=== PATIENT | female | born 1980 | race Caucasian/White ===

== ENCOUNTER → 2017-05-05 | Outpatient (CLI) | payer OTHER ==
[2016-11-06 15:08] VITALS: BP 92/55
[~2017-05-05] MED LIST: ASPI-482 PO; B CO1CAP6 PO; BUSP15TA PO; CETI10CA PO; CLON0.5T PO; CLON0.5T3 PO; CLON1TAB3; DICL1TAB5 PO; DIPH25CA58 PO; DOCU-109 PO; DOCU100C2 PO; DOXY100T PO; DULO60CA6 PO; ENOX40DI SQ; ERYT250T14; ESCITALOPRAM OX20 MG; Enoxaparin Sodium SQ; FENT1PAT90; FENT1PAT90 TD; FENT1PAT91; FLUO20CA16 PO; GABA-586 PO; GABA600T2; HYDR-2766; HYDR-3074 PO; LIDO700A4 TP; LISD50CA3 PO; LORA10CA PO; LUBI24CA7 PO; METH-38 PO; OMEP40CA2 PO; OMEP40CA5; ONDA4TAB10 PO; ONDA8TAB12 PO; ONDA8TAB15 PO; OXYC-314 PO; OXYC10TA PO; OXYC10TA45 PO; OXYC20TA34 PO; OXYC30TA21 PO; OXYC5CAP PO; OXYC5TAB PO; OXYC5TAB88 PO; POLY17PO29 PO; PRED-220; PREN-14 PO; PROAIR HFA8.5 GM IH; Polyethylene Glycol 3350 PO; QUET50TA5 PO; RANI150T6 PO; RANI300C PO; RANI300T; RISP1TAB43 PO; RIZA10TA PO; RIZA10TA7; SULF1TAB24 PO; WARF-78 PO; WARF10TA45 PO; WARF5TAB7; WARF5TAB7 PO; WARF7.5T48 PO; ZOLP12.54 PO; [UNRECOGNIZED DRUG - CODE] PO
--- NOTE | 2017-05-05 17:16 | RAD ---
Indication: Constipation. Time of exam 1702 hours. Correlation is made with prior study from 10/21/2015. There are surgical clips in the gallbladder fossa. Moderate stool in the left colon is seen. There is some [id number] gaseous distention of the colon, nonspecific. Small bowel is nondistended. No wall thickening or pneumatosis is detected. No free air is seen. Impression: Moderate stool in the left colon. No other significant abnormality is detected.
== END | disposition home or self-care (01) ==
LOC: RAD 16:43
PROVIDERS: ATTEND Family Medicine
DX: K59.00 Constipation, unspecified (principal)
CPT/HCPCS: 74000